=== PATIENT | female | born 1965 | race Two or more races ===

== ENCOUNTER 2020-02-04 10:35 | Day surgery (SDC) | payer OTHER ==
[~2020-02-04 10:35] MED LIST: WELLBUTRIN XL300 MG PO; [UNRECOGNIZED DRUG - OTHER]
== END 2020-02-04 17:30 | disposition home or self-care (01) ==
LOC: CIR.AMB 10:35 → ADM 10:45 → CIR.AMB 10:45
PROVIDERS: ATTEND Obstetrics & Gynecology
DX: N85.01 Benign endometrial hyperplasia (principal); L28.0 Lichen simplex chronicus; L29.2 Pruritus vulvae